=== PATIENT | female | born 1995 | race Caucasian/White ===

== ENCOUNTER 2022-05-24 10:11 | Emergency (ER) | payer MEDICAID, SELFPAY ==
[2022-05-24 10:25] VITALS: BP 144/75; PULSE 80; RESP 18; TEMP 36.6; O2SAT 98; BMI 41.3
--- NOTE | 2022-05-24 12:32 | ED.DENTAL ---
HPI - Dental/Oral General Chief complaint: Dental/Oral Stated complaint: Dental pain Time Seen by Provider: 05/24/22 12:32 Source: patient Mode of arrival: ambulatory Limitations: no limitations History of Present Illness HPI Narrative: 26 yo female presents to the ER for evaluation of right lower molar pain for the last 2 weeks. She reports the pain got acutely worse last night and she was unable to sleep at all, she was up all night crying. She reports the tooth is cracked and is causing severe pain. She is unable to eat or drink on that side. She denies any fever chills or facial swelling. She does not have a dentist and recently moved to the area. She has been taking [id number] medications for pain with no relief. MD Complaint: tooth pain and tooth injury Location: Tooth # (31) Onset (ago): week(s) (2) Duration: worsening Severity: severe Severity scale (1-10): >10 Relieving factors: nothing Exacerbating factors: chewing, cold and heat Context: history of dental caries, trauma (mechanism) and poor dental care Treatment prior to arrival: oral analgesic Related Data Previous Rx's Medication Instructions Recorded chlorhexidine gluconate 0.12 % 15 ml buccal BID #118 mL 05/24/22 mouthwash clindamycin HCl 300 mg capsule 300 mg PO Q6H 7 days #28 caps 05/24/22 ibuprofen 800 mg tablet 800 mg PO Q8H PRN pain #14 tabs 05/24/22 oxycodone 5 mg tablet 5 mg PO Q6H PRN pain #8 tabs 05/24/22 Allergies Allergy/AdvReac Type Severity Reaction Status Date / Time amoxicillin Allergy Hives Verified 05/24/22 12:23 azithromycin [From Zithromax] Allergy Hives Verified 05/24/22 12:23 cephalexin [From Keflex] Allergy Hives Verified 05/24/22 12:21 clonidine Allergy Hives Verified 05/24/22 12:23 Review of Systems Constitutional: Constitutional: Denies chills and Denies fever(s) Eyes: Eyes: Reports no additional eye complaints ENT: Reports Normal hearing present, Denies bleeding gums, Reports dental pain, Denies vertigo, Denies dizziness, Denies mouth lesions, Reports mouth pain, Denies neck pain, Denies sore throat and Denies throat swelling Cardiovascular: Cardiovascular: Denies chest pain Respiratory: Respiratory: Denies cough Gastrointestinal: Gastrointestinal: Denies nausea and Denies vomiting Musculoskeletal: Musculoskeletal: Denies neck pain Neurologic: Reports Normal hearing present, Denies vertigo and Denies dizziness Hematologic/Lymphatic: Hematologic/Lymphatic: Denies easy bleeding Allergic/Immunologic: Allergic/Immunologic: Denies throat swelling [facility] Social History Social History Advance Directives: No Advance Directives Information Provided: Yes Physical Exam Vital Signs: Vital Signs: Last Vital Signs Temp 98 F 05/24/22 10:25 Pulse 80 05/24/22 10:25 Resp 18 05/24/22 10:25 BP 144/75 H 05/24/22 10:25 Pulse Ox 98 05/24/22 10:25 BMI result Body Mass Index 41.3 Const: General: no acute distress, well developed, alert and awake Nutritional Appearance: average body habitus Orientation/consciousness: patient oriented x3 Limitations: no limitations HEENT: Head: Yes normal to inspection, Yes normocephalic and Yes atraumatic Ears: hearing grossly normal bilaterally and external ears normal General nose exam: Normal external nose present and Normal nares present Face and sinus: Yes normal facial exam, Yes sinuses nontender and Yes face symmetric Mouth: Normal oral and palatal mucosa present, lip normal, tongue normal and moist mucous membranes Teeth and gingiva: abnormal tooth and associated gingiva lower right third molar tender and pulp exposed, gingiva abnormal diffusely erythematous and tender and poor dentition Throat: Yes posterior oropharynx normal, Yes tonsils normal and Yes uvula midline Eyes: General: appearance normal, both eyes and all related structures Neck: Neck: Yes normal visual inspection, Yes full ROM and Yes no lymphadenopathy Chest: Chest palpation & inspection: normal inspection of the chest Resp: Effort & Inspection: normal respiratory effort and able to speak in complete sentences Skin: General skin exam: no rashes or lesions noted Neuro: General: patient oriented x3 and gait normal Cranial nerves: Yes Normal hearing present Extrem: General: Yes normal to inspection and Yes full ROM Psych: Appearance: disheveled Mental Status: mental status grossly normal Speech and movement: Normal speech and movement present Affect: Sad affect present Attitude: cooperative Course Course Course Narrative: 26-year-old female presents to the ER for evaluation of right lower molar pain for the last 2 weeks, acutely worsened last night. She has a fractured tooth with exposed pulp in [place]. No palpable abscess on examination. No facial swelling. She has had no fevers. She has multiple allergies to antibiotics. Will start her on clindamycin. Emergency dentist list has been provided. Will also start her on high-dose ibuprofen, short course of oxycodone for severe pain and chlorhexidine mouthwash. She will call dentist on the list today for short term follow-up. Stable for discharge home. Patient agrees with plan. Discharge Plan Discharge Clinical Impression: Fracture of tooth Patient Disposition: Home, Self-Care Instructions: Acute Dental Trauma (ED), Toothache (ED) Additional Instructions: Take all of the prescribed medications as directed. Follow-up with a dentist as soon as possible. If you develop new or worsening symptoms call 911 or come back to the ER for further evaluation. Prescriptions: New clindamycin HCl 300 mg capsule 300 mg PO Q6H 7 Days Qty: 28 0RF ibuprofen 800 mg tablet 800 mg PO Q8H PRN (Reason: pain) Qty: 14 0RF oxycodone 5 mg tablet 5 mg PO Q6H PRN (Reason: pain) Qty: 8 0RF Rx Instructions: Partial Fill upon patient request. chlorhexidine gluconate 0.12 % mouthwash 15 ml buccal BID Qty: 118 0RF
[2022-05-24] MEDS: Clindamycin HCL 300 MG CAPSULE PO (12:53)
[2022-05-24] MEDS: Ibuprofen 800 MG TABLET PO (12:53)
[2022-05-24] MEDS: oxyCODONE HCl Immed Release 5 MG TABLET PO (12:53)
== END 2022-05-24 13:16 | disposition home or self-care (01) ==
PROVIDERS: Emergency Provider Emergency Medicine
DX: K08.89 Other specified disorders of teeth and supporting structures (principal); K03.81 Cracked tooth; K02.9 Dental caries, unspecified
CPT/HCPCS: 99283

== ENCOUNTER 2022-08-22 10:37 | Emergency (ER) | payer MEDICAID, SELFPAY ==
[2022-08-22 11:02] VITALS: BP 136/83; PULSE 82; RESP 18; TEMP 36.6; O2SAT 98; BMI 39.8
--- NOTE | 2022-08-22 11:37 | PC.NURSE ---
pt. states she has been on 3 course of antibiotics for a tooth infection and the pain and swelling goes away for a while but then comes back. dentist is not willing to treat due to and OB doctor has advised her to wait. swelling and tenderness on left side of the face.
== END 2022-08-22 12:12 | disposition home or self-care (01) ==
PROVIDERS: Emergency Provider Emergency Medicine
DX: K08.89 Other specified disorders of teeth and supporting structures (principal)
CPT/HCPCS: 99283

== ENCOUNTER 2024-01-09 15:32 | Emergency (ER) | payer MEDICAID, SELFPAY ==
[2024-01-09 15:39] VITALS: BP 151/107; PULSE 101; RESP 16; TEMP 36.8; O2SAT 97; BMI 49.6
--- NOTE | 2024-01-09 15:42 | ED.GENADULT ---
HPI - General Adult General Chief complaint: Dental/Oral Stated complaint: tooth pain Time Seen by Provider: 01/09/24 15:47 Source: patient Mode of arrival: ambulatory Limitations: no limitations History of Present Illness HPI narrative: Patient is a 28 year old assigned female at with no reported medical history presenting to the emergency department today with left lower dental pain. Patient states that this last week she broke her left lower tooth and has not been able to get into a dentist. Patient denies any dizziness, lightheadedness, abdominal pain, nausea, vomiting, fever, chills, blurry vision, double vision, loss of vision, chest pain, difficulty breathing, shortness of breath, back pain, night sweats, pain with urination, increased urinary frequency, increased urinary urgency, blood in her urine or stool, syncope or a near syncopal episode, bowel incontinence, bladder incontinence, bowel retention, bladder retention, or any other complaints at this time. Onset (ago): day(s) Location: mouth and left Severity: mild Severity scale (1-10): 3 Quality: aching Pain Consistency: constant Relieving factors: none Exacerbating factors: none Associated symptoms: denies other symptoms Treatments prior to arrival: none Related Data Previous Rx's ?Medication ?Instructions ?Recorded chlorhexidine gluconate 0.12 % 15 ml buccal BID #118 mL 05/24/22 mouthwash clindamycin HCl 300 mg capsule 300 mg PO Q6H 7 days #28 caps 05/24/22 ibuprofen 800 mg tablet 800 mg PO Q8H PRN pain #14 tabs 05/24/22 oxycodone 5 mg tablet 5 mg PO Q6H PRN pain #8 tabs 05/24/22 Miracle Mouthwash-Mendoza 240 mL 15 ml PO BID #240 mL 08/22/22 liquid clindamycin HCl 300 mg capsule 300 mg PO Q6H 7 days #28 caps 08/22/22 chlorhexidine gluconate 0.12 % 15 ml buccal BID #118 mL 01/09/24 mouthwash (Peridex) clindamycin HCl 150 mg capsule 450 mg (3 x 150 mg) PO TID 7 days 01/09/24 #63 caps naproxen 500 mg tablet 500 mg PO BID 7 days #14 tabs 01/09/24 Allergies Allergy/AdvReac Type Severity Reaction Status Date / Time amoxicillin Allergy Hives Verified 01/09/24 15:42 azithromycin [From Zithromax] Allergy Hives Verified 01/09/24 15:42 cephalexin [From Keflex] Allergy Hives Verified 01/09/24 15:42 clonidine Allergy Hives Verified 01/09/24 15:42 Review of Systems Constitutional: Constitutional: Reports no additional constitutional complaints, Denies chills, Denies fever(s) and Denies night sweats Eyes: Eyes: Reports no additional eye complaints, Denies blurry vision, Denies change in vision, Denies diplopia, Denies eye discharge, Denies loss of vision and Denies eye pain ENT: Denies dizziness Comments: left lower dental pain Cardiovascular: Cardiovascular: Reports no additional cardiovascular complaints, Denies chest pain, Denies lightheadedness, Denies Loss of Consciousness and Denies dyspnea Respiratory: Respiratory: Reports no additional respiratory complaints and Denies dyspnea Gastrointestinal: Gastrointestinal: Reports no additional gastrointestinal complaints, Denies abdominal pain, Denies melena, Denies hematochezia, Denies change in bowel habits and Denies change in stool character Genitourinary: Genitourinary: Denies hematuria, Denies urinary frequency, Denies dysuria, Denies urinary incontinence, Denies urinary hesitancy and Denies urinary urgency Musculoskeletal: Musculoskeletal: Reports no additional musculoskeletal complaints, Denies numbness and Denies tingling Neurologic: Denies dizziness, Denies loss of vision, Denies numbness and Denies tingling Psychiatric: Psychiatric: Reports no additional psychiatric complaints Endocrine: Endocrine: Reports no additional endocrine complaints Hematologic/Lymphatic: Hematologic/Lymphatic: Reports no additional hematologic/lymphatic complaints Allergic/Immunologic: Allergic/Immunologic: Reports no additional allergic/immunologic complaints PMFSH Past Medical History Attestation statement: The following information was validated with the patient. Source: old records reviewed and nursing notes reviewed Social History Social History Advance Directives: No Advance Directives Information Provided: No Do you have a plan to hurt others: No Plan Physical Exam ED Vital Signs: BMI result Body Mass Index 49.6 Const General: cooperative, no acute distress, alert and awake Nutritional Appearance: well nourished Orientation/consciousness: patient oriented x3 Limitations: no limitations HENMT Head: Yes normal to inspection and Yes atraumatic Ears: hearing grossly normal bilaterally and external ears normal General nose exam: Normal external nose present, no nasal discharge noted and no epistaxis Face and sinus: Yes normal facial exam, No abrasion and No laceration Mouth: Normal oral and palatal mucosa present, no drooling and no muffled voice Teeth and gingiva: poor dentition Teeth image: 1. obviously broken tooth with surrounding erythema, no fluctuance Eyes General: appearance normal, both eyes and all related structures Periorbital: periorbital findings normal Eyelids: Yes eyelids normal Conjunctivae: conjunctivae normal Pupils: Equal, round and reactive pupils present EOM: EOMs intact bilaterally Neck Neck: Yes normal visual inspection, Yes full ROM and Yes no lymphadenopathy Chest Chest palpation & inspection: normal inspection of the chest Resp Effort & Inspection: normal respiratory effort and able to speak in complete sentences GI Inspection: Yes normal to inspection Neuro General: patient oriented x3 and moves all extremities Cranial nerves: Yes Equal, round and reactive pupils present Cognition (Neuro): normal cognition Motor exam (neuro): 5/5 motor strength present throughout Sensory Exam: Normal double simultaneous stimulation for sensation Coordination: [id number] test normal Extrem General: Yes normal to inspection, Yes full ROM and Yes capillary refill normal Psych Appearance: grossly normal Mental Status: mental status grossly normal Affect: normal affect Attitude: cooperative Thought process: Normal thought process present Thought content: Normal thought content present Insight: Good insight present (Psych) Medications Administered Discontinued Medications Generic Name Dose Route Start Last Admin Trade Name Freq PRN Reason Stop Dose Admin Oxycodone HCl 5 mg 01/09/24 15:46 01/09/24 15:49 Oxycodone Hcl Immed Release 5 Mg Tablet PO 01/09/24 15:47 5 mg ONCE ONE Administration Medical Decision Making Medical Decision Making [facility] Narrative: Patient is a 28 year old assigned female at with no reported medical history presenting to the emergency department today with left lower dental pain. Patient's physical exam was as noted in the physical exam portion of this note. I explained my physical exam findings to the patient. I answered all questions asked by the patient. I stressed the importance of the patient taking her medication as prescribed. I stressed the importance of the patient following up with her primary care provider and a dentist. I stressed the importance of the patient returning to the emergency department immediately if her symptoms were to worsen or if she were to develop any dizziness, shortness of breath, difficulty breathing, chest pain, blurry vision, loss of vision, nausea, vomiting, abdominal pain, fever, chills, back pain, or any other complaints. Patient verbalized agreement and understanding with this treatment plan and discharge. Differential Diagnosis Differential Diagnoses: The differential diagnosis associated with the presentation includes Dental abscess Broken tooth Dental caries Admission/Observation Consideration of admission/observation: Escalation of care including admission/observation considered Patient would have been admitted to the hospital had her clinical presentation warranted hospital admission. Prescription Management I considered prescription management with: Antibiotic (patient prescribed an antibiotic for possible dental abscess) Discharge Plan Discharge Clinical Impression: Abscess, dental Patient Disposition: Home, Self-Care Instructions: Dental Abscess (ED) Additional Instructions: Take your medication as prescribed. EAT with your antibiotic and make sure to take a PROBIOTIC. Follow up with your primary care provider and a dentist. Return to the emergency department immediately if your symptoms worsen or if you develop any dizziness, shortness of breath, difficulty breathing, chest pain, blurry vision, loss of vision, nausea, vomiting, abdominal pain, fever, chills, back pain, or any other complaints. Call or visit any of the clinics below to establish with a dentist: [facility] [address] [place] [address] [address] [facility], [address] [address] [facility] [address] [place] [id number] [facility] [address] [place] [address] [address] [place] [address] Prescriptions: New naproxen 500 mg tablet 500 mg PO BID 7 Days Qty: 14 0RF chlorhexidine gluconate [Peridex] 0.12 % mouthwash 15 ml buccal BID Qty: 118 0RF clindamycin HCl 150 mg capsule 450 mg PO TID 7 Days Qty: 63 0RF No Action clindamycin HCl 300 mg capsule 300 mg PO Q6H 7 Days Qty: 28 0RF Miracle Mouthwash-Mendoza 240 mL liquid 15 ml PO BID Qty: 240 0RF Rx Instructions: Nystatin susp 80 mL;Lidocaine 2% Visc 80 mL; Maalox 80 mL; Swish and spit clindamycin HCl 300 mg capsule 300 mg PO Q6H 7 Days Qty: 28 0RF ibuprofen 800 mg tablet 800 mg PO Q8H PRN (Reason: pain) Qty: 14 0RF oxycodone 5 mg tablet 5 mg PO Q6H PRN (Reason: pain) Qty: 8 0RF Rx Instructions: Partial Fill upon patient request. chlorhexidine gluconate 0.12 % mouthwash 15 ml buccal BID Qty: 118 0RF Referrals: [facility] [place] Family Medicine [Provider Group] (Call to establish and follow up with a primary care provider. If you already have a primary care provider, please follow up with them.) [facility] [place] Primary CareLia [Provider Group] [facility] [place] Primary CareJeremy [Provider Group] Discharge Date/Time: 01/09/24 15:51 Print Language: Azerbaijani
[2024-01-09] MEDS: oxyCODONE HCl Immed Release 5 MG TABLET PO (15:49)
== END 2024-01-09 15:51 | disposition home or self-care (01) ==
PROVIDERS: Emergency Provider Emergency Medicine
DX: K04.7 Periapical abscess without sinus (principal); K08.89 Other specified disorders of teeth and supporting structures
CPT/HCPCS: 99282; 99283

== ENCOUNTER 2025-01-05 17:14 | Emergency (ER) | payer MEDICAID, SELFPAY ==
--- NOTE | 2025-01-05 17:36 | ED_ITS ---
HPI - Dental/Oral General Chief complaint: Dental/Oral Stated complaint: tooth infection Time Seen by Provider: 01/05/25 17:52 Source: patient Mode of arrival: ambulatory Limitations: no limitations History of Present Illness ED Provider: Makayla Loyola NP HPI Narrative: Patient is a 29-year-old female who presents emergency department for evaluation, she states that she has 2 molars in the lower right portion of her mouth she is awaiting consultation for extraction from an oral surgeon but appointment is not scheduled until March of 2025, the molars have fractured sometime in the past. Over the past week she has been experiencing increasing pain and swelling. Denies any recent dental procedures. Denies associated fevers, chills, headache, neck pain, neck stiffness, ear pain, sore throat, inability to open the mouth, foul taste, pus-like drainage, bleeding from the gums. Related Data Previous Rx's ?Medication ?Instructions ?Recorded chlorhexidine gluconate 0.12 % 15 ml buccal BID #118 mL 05/24/22 mouthwash clindamycin HCl 300 mg capsule 300 mg PO Q6H 7 days #28 caps 05/24/22 ibuprofen 800 mg tablet 800 mg PO Q8H PRN pain #14 tabs 05/24/22 oxycodone 5 mg tablet 5 mg PO Q6H PRN pain #8 tabs 05/24/22 Miracle Mouthwash-Mendoza 240 mL 15 ml PO BID #240 mL 08/22/22 liquid clindamycin HCl 300 mg capsule 300 mg PO Q6H 7 days #28 caps 08/22/22 chlorhexidine gluconate 0.12 % 15 ml buccal BID #118 mL 01/09/24 mouthwash (Peridex) clindamycin HCl 150 mg capsule 450 mg (3 x 150 mg) PO TID 7 days 01/09/24 #63 caps naproxen 500 mg tablet 500 mg PO BID 7 days #14 tabs 01/09/24 chlorhexidine gluconate 0.12 % 15 ml buccal BID #118 mL 01/05/25 mouthwash clindamycin HCl 150 mg capsule 450 mg (3 x 150 mg) PO TID 7 days 01/05/25 #63 caps oxycodone 5 mg tablet 5 mg PO Q6H PRN pain #10 tabs 01/05/25 Allergies Allergy/AdvReac Type Severity Reaction Status Date / Time amoxicillin Allergy Hives Verified 01/05/25 17:38 azithromycin [From Zithromax] Allergy Hives Verified 01/05/25 17:38 cephalexin [From Keflex] Allergy Hives Verified 01/05/25 17:38 clonidine Allergy Hives Verified 01/05/25 17:38 Review of Systems Review of Systems: Yes all other systems are reviewed and are negative [facility] Past Medical History Attestation statement: The following information was validated with the patient. Source: old records reviewed Social History Social History Advance Directives: No Advance Directives Information Provided: No Physical Exam Vital Signs: Vital Signs: Last Vital Signs Temp 98.3 F 01/05/25 17:37 Pulse 97 01/05/25 17:37 Resp 20 01/05/25 17:37 BP 153/99 H 01/05/25 17:37 Pulse Ox 99 01/05/25 17:37 O2 Del Method Room Air 01/05/25 17:37 BMI result Body Mass Index 48.9 Appearance: Alert. Oriented X3. No acute distress. Head: Normal external exam. Normocephalic. Atraumatic. Eyes: PERRLA. EOMI. Conjunctiva and sclera normal. Eyelids normal. ENT: EAC normal. TM's Normal. Pharynx normal. Uvula midline. Moist mucous membranes.? ?No trismus noted.? No drooling noted.? No muffled voice noted. Dentition:? Patient with poor dentition throughout with multiple old fractured teeth with multiple dental caries.?# 32 and # 31 are fracture with surrounding gingival erythema but no apparent abscess or fluctuance, no purulence or active drainage.? Not consistent with peritonsillar abscess. Not consistent with dental abscess.? No salivary duct obstruction noted. Neck: Normal inspection. Neck supple. FROM. No adenopathy. No meningeal signs. No neck mass noted.? CVS: Normal heart rate and rhythm. Heart sound normal. No murmurs noted. Pulses normal throughout. Respiratory: No respiratory distress. Lung sounds clear to the apices bilaterally.. Chest nontender. ?No accessory muscle usage noted or decreased air movement noted. Skin: Skin warm and dry.? Normal skin color.? Normal skin turgor. No rashes/lesions/lacerations noted. Extremities: Extremities exhibit normal range of motion.? Extremities nontender. Neuro: Oriented X 3.? No motor deficit.? No sensory deficit.? Reflexes normal. Medical Decision Making Medical Decision Making MDM Narrative: Patient is a 29 year female who presents emergency department for evaluation of dental pain as per HPI, tooth #32 and #31 fractured with surrounding gingival erythema, no reported temperature sensitivity or purulence. Patient physical exam concerning for early infection, she likely requires a root canal/extraction she is awaiting consultation from a maxilla oral specialist. Does not appear to have apparent periapical or periodontal abscess. No trismus, no associated sore throat, no dysphagia, no odynophagia, no hoarseness, no stridor, no dyspnea, low suspicion for paripharyngeal space infection. Uvula is midline, no edema to the soft palate, unlikely peritonsillar abscess. No induration below the angle of the mandible on the neck, nontoxic in appearance, unlikely parapharyngeal abscess. Posterior pharyngeal anatomy is without any evidence of distortion, unlikely retropharyngeal abscess. On examination no tenderness of the floor of the mouth, able to tolerate secretions, no drooling, no nuchal rigidity, no swelling to the neck, unlikely Riccardo's angina. Not consistent with alveolar osteitis. Sent home with prescription for clindamycin, chlorhexidine mouthwash, and a short prescription for oxycodone to take for severe pain unrelieved by acetaminophen and ibuprofen, advised on strict return precautions. All questions answered Differential Diagnosis Differential Diagnoses: The differential diagnosis associated with the presentation includes (See narrative above) External Record Review External record reviewed: Outpatient record Prescription Management I considered prescription management with: Pain Medication and Antibiotic Discharge Plan Discharge Clinical Impression: Dental caries Patient Disposition: Home, Self-Care Additional Instructions: Prescription for antibiotic has been sent to your pharmacy, be sure to take it with food to prevent stomach upset. Do not skip any doses or stop taking early even if you begin to feel better. Follow-up with your dentist as scheduled. Prescription for chlorhexidine mouthwash has been sent additionally. You can take ibuprofen 200 mg, 3 tablets (600mg) every 6-8 hours as needed for pain, in addition to Tylenol 500 mg, 2 tablets (1,000mg) every 4-6 hours as needed for pain, but not to exceed 3 doses daily (3,000mg).? For pain unrelieved by either of the above I have sent a short prescription for oxycodone to your pharmacy. This is a narcotic medication. It may make you drowsy. You should not drive, drink alcohol, or work while taking this medication. DO NOT take this in addition to your lorazepam as this can result in overly sedating effects. You may return with any new or worsening symptoms or concerns. Prescriptions: New oxycodone 5 mg tablet 5 mg PO Q6H PRN (Reason: pain) Qty: 10 0RF Rx Instructions: Partial Fill upon patient request. chlorhexidine gluconate 0.12 % mouthwash 15 ml buccal BID Qty: 118 0RF clindamycin HCl 150 mg capsule 450 mg PO TID 7 Days Qty: 63 0RF No Action clindamycin HCl 300 mg capsule 300 mg PO Q6H 7 Days Qty: 28 0RF Miracle Mouthwash-Mendoza 240 mL liquid 15 ml PO BID Qty: 240 0RF Rx Instructions: Nystatin susp 80 mL;Lidocaine 2% Visc 80 mL; Maalox 80 mL; Swish and spit clindamycin HCl 300 mg capsule 300 mg PO Q6H 7 Days Qty: 28 0RF ibuprofen 800 mg tablet 800 mg PO Q8H PRN (Reason: pain) Qty: 14 0RF oxycodone 5 mg tablet 5 mg PO Q6H PRN (Reason: pain) Qty: 8 0RF Rx Instructions: Partial Fill upon patient request. chlorhexidine gluconate 0.12 % mouthwash 15 ml buccal BID Qty: 118 0RF naproxen 500 mg tablet 500 mg PO BID 7 Days Qty: 14 0RF chlorhexidine gluconate [Peridex] 0.12 % mouthwash 15 ml buccal BID Qty: 118 0RF clindamycin HCl 150 mg capsule 450 mg PO TID 7 Days Qty: 63 0RF Referrals: [facility] [Primary Care Provider] - Interventions: ED Discharge Assessment Last Done: 01/05/25 17:58 Print Language: Welsh
[2025-01-05 17:37] VITALS: BP 153/99; PULSE 97; RESP 20; TEMP 36.8; O2SAT 99; BMI 48.9
[2025-01-05 17:58] VITALS: BP 153/99; PULSE 97; RESP 20; TEMP 36.8; O2SAT 99
== END 2025-01-05 17:58 | disposition home or self-care (01) ==
PROVIDERS: Emergency Provider Emergency Medicine
DX: K02.9 Dental caries, unspecified (principal); K08.89 Other specified disorders of teeth and supporting structures
CPT/HCPCS: 99282; 99283